=== PATIENT | female | born 1970 | race Two or more races ===

== ENCOUNTER → 2021-04-06 | Outpatient (REF) | payer MEDICARE, MEDICAID ==
[2021-04-06 16:34] LABS: BASO # 0.1 10^3/uL (0.0-0.2); BASO % 0.6 % (0.0-1.0); EOS # 0.3 10^3/uL (0.0-0.5); EOS % 2.9 % (0.0-3.0); HEMATOCRIT 39.7 % (36.0-47.0); HEMOGLOBIN 12.5 g/dl (12.0-15.5); LYMPH # 2.2 10^3/uL (1.5-5.0); LYMPH % 24.3 % (24.0-44.0); MEAN CORPUSCULAR HEMOGLOBIN 25.8 pg (27.0-33.0); MEAN CORPUSCULAR HGB CONC 31.5 g/dl (32.0-36.5); MONO # 0.5 10^3/uL (0.0-0.8); MONO % 5.9 % (2.0-8.0); NEUTROPHILS % 65.9 % (36.0-66.0); PLATELET COUNT, AUTOMATED 373 10^3/uL (150-450); RED BLOOD COUNT 4.84 10^6/uL (4.00-5.40); WHITE BLOOD COUNT 9.1 10^3/uL (4.0-10.0)
[2021-04-06 17:08] LABS: ALBUMIN 3.7 GM/DL (3.2-5.2); ALT/SGPT 18 U/L (12-78); BILIRUBIN,TOTAL 0.2 MG/DL (0.2-1.0); BLOOD UREA NITROGEN 15 MG/DL (7-18); CALCIUM LEVEL 8.7 MG/DL (8.5-10.1); CARBON DIOXIDE LEVEL 26 MEQ/L (21-32); CHLORIDE LEVEL 108 MEQ/L (98-107); COMPLEMENT C3 114 MG/DL (90-180); COMPLEMENT C4 28 MG/DL (10-40); CREATININE FOR GFR 0.73 MG/DL (0.55-1.30); GLOMERULAR FILTRATION RATE > 60.0 (>51); GLUCOSE, FASTING 93 MG/DL (70-100); LDH LACTATE DEHYDROGENASE 190 U/L (84-246); POTASSIUM SERUM 3.8 MEQ/L (3.5-5.1); SODIUM LEVEL 140 MEQ/L (136-145); TOTAL PROTEIN 7.2 GM/DL (6.4-8.2)
[2021-04-06 17:10] LABS: CREATININE,RANDOM URINE 59.6 MG/DL; TOTAL PROTEIN,RANDOM URINE 5.4 MG/DL (0.0-12.0)
[2021-04-06 17:16] LABS: TOTAL 25(OH) VITAMIN D 26.5 NG/ML (30.0-100.0)
[2021-04-06 17:27] LABS: HEPATITIS B SURFACE ANTIGEN NEGATIVE (NEGATIVE)
[2021-04-06 17:30] LABS: APPEARANCE, URINE CLEAR (CLEAR); BACTERIA, URINE AUTO NEGATIVE (NEGATIVE); BILIRUBIN, URINE AUTO NEGATIVE (NEGATIVE); BLOOD, URINE BLOOD 2+ (NEGATIVE); COLOR, URINE STRAW (YELLOW); GLUCOSE, URINE (UA) AUTO NEGATIVE (NEGATIVE); KETONE, URINE AUTO NEGATIVE (NEGATIVE); LEUKOCYTE ESTERASE, URINE AUTO NEGATIVE (NEGATIVE); MUCUS, URINE SMALL (NEGATIVE); NITRITE, URINE AUTO NEGATIVE (NEGATIVE); PROTEIN, URINE AUTO NEGATIVE (NEGATIVE); RBC, URINE AUTO 2 /HPF (0-3); SPECIFIC GRAVITY URINE AUTO 1.012 (1.002-1.035); SQUAMOUS EPITHELIAL CELL UR AU 0 /HPF (0-6); UROBILINOGEN, URINE AUTO 0.2 mg/dL (0.0-2.0); WBC, URINE AUTO 0 /HPF (0-3)
[2021-04-06 19:23] LABS: ERYTHROCYTE SEDIMENTATION RATE 24 mm/hr (0-30)
[2021-04-08 07:47] LABS: ALBUMIN 4.02 GM/DL (3.29-5.55); ALBUMIN % 55.8 % (55.8-66.1); ALPHA-1-GLOBULIN % 4.5 % (2.9-4.9); ALPHA-1-GLOBULINS 0.32 GM/DL (0.17-0.41); ALPHA-2-GLOBULINS % 11.1 % (7.1-11.8); BETA-1-GLOBULINS % 7.3 % (4.7-7.2); BETA-2-GLOBULINS % 5.1 % (3.2-6.5); GAMMA GLOBULIN % 16.2 % (11.1-18.8)
[2021-04-08 07:48] LABS: BETA-1-GLOBULINS 0.53 GM/DL (0.28-0.60); BETA-2-GLOBULINS 0.37 GM/DL (0.19-0.55); GAMMA GLOBULINS 1.17 GM/DL (0.65-1.58)
[2021-04-11 10:07] LABS: ANGIOTENSIN 1 CONVERTING ENZYM 29 U/L (14-82); HEPATITIS B CORE ANTIBODY IGG Negative (Negative); VITAMIN D 1,25 DIHYDROXY 56.4 pg/mL (19.9-79.3)
== END ==
LOC: M SFHCRHEU 14:38
PROVIDERS: ATTEND Internal Medicine Rheumatology
DX: R76.8 Other specified abnormal immunological findings in serum (principal); M15.9 Polyosteoarthritis, unspecified; R21 Rash and other nonspecific skin eruption; Z79.899 Other long term (current) drug therapy
CPT/HCPCS: 36415; 80053; 81001; 82085; 82164; 82306; 82550; 82570; 82652; 83615; 84156; 84165; 85025; 85613; 85652; 85732; 86140; 86160; 86480; 86704; 87340; G0463

== ENCOUNTER 2023-09-09 22:37 | Emergency (ER) | payer MEDICAID, MEDICARE, OTHER ==
[~2023-09-09] VITALS: Ht 160 cm; Wt 90.9 kg
[2023-09-09 22:37] VITALS: TEMP 97.7
[2023-09-09] MEDS: MORPHINE 4 MG/ML 1ML VIAL IV PRN (23:28)
[2023-09-09] MEDS ORDERED: propofoL 200 MG/20 ML VIAL As Ordered ONE (23:42)
[2023-09-09] MEDS ORDERED: IBUP-1114 PO (23:46)
[2023-09-09] MEDS: ONDANSETRON 4MG 2ML VIAL IV ONE (23:49)
[2023-09-09] MEDS: NS 1,000 ML IV SCH (23:53)
[2023-09-10] MEDS: HYDROMORPHONE HCL 0.5 MG/ 0.5 ML SYRINGE IV PRN
[2023-09-10] MEDS: propofoL 200 MG/20 ML VIAL IV.PROC PRN (00:34)
[2023-09-10 01:30] VITALS: BP 156/71
[2023-09-10 01:35] VITALS: O2SAT 94
== END 2023-09-10 02:04 | disposition home or self-care (01) ==
LOC: M ED 22:37
DX: S43.014A Anterior dislocation of right humerus, initial encounter (principal); S93.401A Sprain of unspecified ligament of right ankle, initial encounter; W54.8XXA Other contact with dog, initial encounter; R22.41 Localized swelling, mass and lump, right lower limb; M77.31 Calcaneal spur, right foot; I10 Essential (primary) hypertension; F12.10 Cannabis abuse, uncomplicated; Y92.410 Unspecified street and highway as the place of occurrence of the external cause; Y93.K1 Activity, walking an animal; Y99.9 Unspecified external cause status; Z88.8 Allergy status to other drugs, medicaments and biological substances; Z88.4 Allergy status to anesthetic agent; Z79.1 Long term (current) use of non-steroidal anti-inflammatories (NSAID)
CPT/HCPCS: 23650; 73020; 73030; 73060; 73090; 73610; 93041; 94760; 96361; 96374; 96375; 96376; 99285; J1170; J2405

== ENCOUNTER → 2024-10-07 | Outpatient (CLI) | payer OTHER ==
[~2024-10-07] MED LIST: IBUP-1114 PO
[2024-10-07 17:38] LABS: BASO # 0.1 10^3/uL (0.0-0.2); BASO % 0.5 % (0.0-1.0); EOS # 0.3 10^3/uL (0.0-0.5); EOS % 3.0 % (0.0-3.0); LYMPH # 2.9 10^3/uL (1.5-5.0); LYMPH % 26.7 % (24.0-44.0); MONO # 0.8 10^3/uL (0.0-0.8); MONO % 7.4 % (2.0-8.0); NEUTROPHILS # 6.6 10^3/uL (1.5-8.5); NEUTROPHILS % 60.9 % (36.0-66.0); PLATELET COUNT, AUTOMATED 387 10^3/uL (150-450)
[2024-10-07 17:57] LABS: CREATININE, URINE 33.4 MG/DL
[2024-10-07 17:58] LABS: MALB URINE SIEMENS < 3.0 MG/L
[2024-10-07 18:01] LABS: ALT/SGPT 22 U/L (7.0-40); AST/SGOT 16 U/L (<34); CALCIUM LEVEL 8.7 MG/DL (8.5-10.1); CARBON DIOXIDE LEVEL 26 MMOL/L (20-31); CHLORIDE LEVEL 103 MMOL/L (98-107); CHOLESTEROL LEVEL 151 MG/DL (<200); CHOLESTEROL RISK RATIO 3.17 (<5); CREATININE FOR GFR 0.74 MG/DL (0.55-1.30); GLOMERULAR FILTRATION RATE > 90.0 (>51); LDL CHOLESTEROL 89.0 MG/DL (<100); NON-HDL-C 103.4 MG/DL; POTASSIUM SERUM 4.6 MMOL/L (3.5-5.1); SODIUM LEVEL 141 MMOL/L (136-145); TRIGLYCERIDES LEVEL 72 MG/DL (<150)
[2024-10-07 18:05] LABS: TOTAL 25(OH) VITAMIN D 44.8 NG/ML (20.0-100.0)
[2024-10-07 18:07] LABS: VITAMIN B12 LEVEL 563 PG/ML (211-911)
== END ==
LOC: M WUC 15:04
PROVIDERS: ATTEND Family Medicine
DX: I10 Essential (primary) hypertension (principal); E53.8 Deficiency of other specified B group vitamins; E55.9 Vitamin D deficiency, unspecified

== ENCOUNTER → 2024-12-02 | Outpatient (CLI) | payer OTHER | LOC: M RAD 14:58 | PROVIDERS: ATTEND Family Medicine | DX: I65.21 Occlusion and stenosis of right carotid artery (principal) ==